=== PATIENT | female | born 1965 | race Hispanic/Latino ===

== ENCOUNTER 2024-01-11 14:10 | Emergency (ER) | payer BC ==
[~2024-01-11] VITALS: Ht 157.5 cm; Wt 67.6 kg
[2024-01-11] MEDS: IBUPROFEN 600 MG TAB PO STA (15:27)
[2024-01-11] MEDS: TRIMETHOPRIM/SULFAMETHOXAZOLE 160-800 MG TAB PO ONE (17:00)
[2024-01-11 17:02] VITALS: PULSE 97; RESP 16; TEMP 98.1; O2SAT 97
[2024-01-11] MEDS ORDERED: MACROBID 100 M100 MG PO (18:02)
== END 2024-01-11 18:12 | disposition home or self-care (01) ==
LOC: FSED 14:15
DX: R50.9 Fever, unspecified (principal); N39.0 Urinary tract infection, site not specified; M25.512 Pain in left shoulder; M25.511 Pain in right shoulder
CPT/HCPCS: 0223U; 73030 ×2; 81003; 87086; 87400; 99283